=== PATIENT | male | born 1955 | race Caucasian/White ===

== ENCOUNTER 2024-04-23 10:09 | Emergency (ER) | payer MEDICARE ==
[2024-04-23 10:47] LABS: BASOPHILS ABSOLUTE AUTO 0.1 K/mm3 (0.0-0.2); BASOPHILS PERCENT AUTO 0.4 % (0.0-1.0); EOSINOPHILS ABSOLUTE AUTO 0.1 K/mm3 (0.0-0.4); EOSINOPHILS PERCENT AUTO 0.6 % (0.0-6.0); HEMATOCRIT 32.6 % (42.0-52.0); HEMOGLOBIN 10.4 gm/dl (14.0-18.0); IMMATURE GRAN ABSOLUTE AUTO 0.05 K/mm3 (0.00-0.05); IMMATURE GRAN PERCENT AUTO 0.4 % (0.0-0.4); LYMPHOCYTES ABSOLUTE AUTO 1.8 K/mm3 (1.0-4.8); LYMPHOCYTES PERCENT AUTO 13.5 % (24.0-44.0); MEAN CORPUSCULAR HEMOGLOBIN 30.3 pg (28.0-32.0); MEAN CORPUSCULAR HGB CONC 31.9 g/dl (32.0-36.0); MEAN PLATELET VOLUME 10.9 fl (9.4-12.4); MONOCYTES ABSOLUTE AUTO 1.2 K/mm3 (0.0-0.8); MONOCYTES PERCENT AUTO 9.2 % (0.0-8.0); NEUTROPHILS PERCENT AUTO 75.9 % (41.0-71.0); PLATELET COUNT,PLT 193 K/mm3 (150-400); RED BLOOD CELL COUNT 3.43 M/mm3 (4.52-5.90); WHITE BLOOD CELL COUNT,WBC 13.11 K/mm3 (3.9-11.3)
[2024-04-23] MEDS: HYDROmorphone 0.5 MG/0.5 ML Syringe IVPUSH ONE (10:49)
[2024-04-23] MEDS: Ondansetron 4 MG/2 ML SDV IVPUSH ONE ×2 (10:49→13:44)
[2024-04-23] MEDS: Sodium Chloride 0.9% 10 ML Syringe FLUSH PRN (10:50)
[2024-04-23] MEDS: Sodium Chloride 0.9% 1,000 ML IV STA (10:50)
[2024-04-23 11:05] LABS: INR 1.21; PROTHROMBIN TIME 12.7 SECONDS (9.7-12.0)
[2024-04-23 11:06] LABS: PTT,PARTIAL THROMBOPLSTIN TIME 25.7 SECONDS (21.7-31.4)
[2024-04-23 11:08] LABS: ALBUMIN 2.6 g/dl (3.4-5.0); ANION GAP 11.6 (5-15); BILIRUBIN TOTAL 1.1 mg/dL (0.2-1.0); BUN/CREATININE RATIO 22.5 (14-18); CALCIUM 8.3 mg/dL (8.5-10.1); CREATININE 1.2 mg/dL (0.7-1.3); EST CRCL DRUG DOSING (CG) 62.75 mL/min; POTASSIUM,K 4.6 mEq/L (3.5-5.1); PROTEIN TOTAL,TP 5.3 g/dl (6.4-8.2)
[2024-04-23] MEDS: Sodium Chloride 0.9% 1,000 ML IV ONE (12:19)
[2024-04-23] MEDS: Tranexamic Acid 1,000 MG/10 ML Vial IV ONE (13:30)
[2024-04-23] MEDS: Iopamidol 755 Mg/ML 100 ML Bottle IVPUSH ONE (14:10)
[2024-04-23] MEDS: Sodium Chloride 0.9% 100 ML IV SCH (14:10)
[2024-04-23] MEDS ORDERED: Etomidate 2 MG/ML 20 ML SDV IVPUSH ONE (14:30)
[2024-04-23] MEDS ORDERED: EPINEPHrine 1:10,000 1 MG/10 ML Syringe ONE ×10 (14:30)
[2024-04-23] MEDS ORDERED: Midazolam 1 MG/ML 5 ML SDV ONE (14:30)
[2024-04-23] MEDS ORDERED: Sodium Bicarbonate 8.4% 50 MEQ/50 ML Syringe ONE ×2 (14:30)
[2024-04-23] MEDS ORDERED: Succinylcholine 200 MG/10 ML MDV ONE (14:30)
[2024-04-23] MEDS: Ondansetron 4 MG/2 ML SDV ONE (15:44)
[2024-04-23] MEDS: Sodium Chloride 0.9% 250 ML ONE (16:12)
== END 2024-04-23 16:59 | disposition expired ==
LOC: JD.ED 10:09
DX: K92.2 Gastrointestinal hemorrhage, unspecified (principal); K86.9 Disease of pancreas, unspecified; F17.210 Nicotine dependence, cigarettes, uncomplicated
CPT/HCPCS: 36415; 36430; 36556; 74177; 80053; 85025; 85610; 85730; 86850; 86900; 86901; 86922; 92950; 96361; 96374; 96375; 96376; 99291; J0171; J0330; J1170; J2405; J3490; J7030; P9016; P9017; Q9967; J2250